=== PATIENT | female | born 1970 | race Caucasian/White ===

== ENCOUNTER 2016-08-22 20:53 | Emergency (ER) | payer BC | END 2016-08-23 00:04 | disposition home or self-care (01) | LOC: ER 20:53 | DX: M54.5 Low back pain (principal); G89.29 Other chronic pain; Z98.890 Other specified postprocedural states; F17.210 Nicotine dependence, cigarettes, uncomplicated; Z88.1 Allergy status to other antibiotic agents | CPT/HCPCS: 72100; 96372; 99283-25 ==

== ENCOUNTER 2016-10-11 23:14 | Observation (INO) | payer BC ==
[~2016-10-11] VITALS: Ht 162.6 cm; Wt 69.0 kg
[2016-10-11 23:48] LABS: BASO # 0.1 10_X3_uL (0.0-0.1); BASO % 0.8 % (0.1-1.2); EOS # 0.3 10_X3_uL (0.0-0.4); EOS % 2.6 % (0.7-5.8); GRAN # 6.7 10_X3_uL (1.6-6.1); GRAN % 66.3 % (34.0-71.1); HEMATOCRIT 42.9 % (34-45); HEMOGLOBIN 14.8 g/dL (11.2-15.7); LYMPH # 2.4 10_X3_uL (1.2-3.7); LYMPH % 23.1 % (19.3-51.7); MEAN CORPUSCULAR HEMOGLOBIN 32.5 pg (27.0-33.0); MEAN CORPUSCULAR HGB CONC 34.5 g/dL (32.0-36.0); MEAN CORPUSCULAR VOLUME 94.3 fL (79-95); MEAN PLATELET VOLUME 10.7 fl (7.5-11.5); MONO # 0.7 10_X3_uL (0.2-0.9); MONO % 7.2 % (4.7-12.5); PLATELET COUNT 283 x10_3/uL (182-369); RED BLOOD COUNT 4.55 x10_6/uL (3.9-5.2); WHITE BLOOD COUNT 10.2 x10_3/uL (4.0-10.0)
[2016-10-12 00:04] LABS: ALBUMIN 4.2 gm/dL (3.4-5.0); ALKALINE PHOSPHATASE 76 U/L (50-136); ALT/SGPT 21 U/L (3.5-33.9); AMYLASE 77 U/L (15.62-74.58); AST/SGOT 18 U/L (7.04-26.96); BLOOD UREA NITROGEN 13 mg/dL (7-18); CALCIUM 9.6 mg/dL (8.7-10.7); CARBON DIOXIDE 21 mmol/L (21-32); CREATININE 0.7 mg/dL (0.6-1.3); GLUCOSE,RANDOM 115 mg/dL (70-99); LIPASE 23 U/L (6.75-60.75); POTASSIUM 3.8 mmol/L (3.5-5.1); SODIUM 140 mmol/L (136-145); TOTAL PROTEIN 7.1 gm/dL (6.4-8.2)
[2016-10-12 06:38] LABS: HEMATOCRIT 40.4 % (34-45); HEMOGLOBIN 13.7 g/dL (11.2-15.7); MEAN CORPUSCULAR HEMOGLOBIN 32.3 pg (27.0-33.0); MEAN CORPUSCULAR HGB CONC 33.9 g/dL (32.0-36.0); MEAN CORPUSCULAR VOLUME 95.3 fL (79-95); MEAN PLATELET VOLUME 10.8 fl (7.5-11.5); RED BLOOD COUNT 4.24 x10_6/uL (3.9-5.2); RED CELL DISTRIBUTION WIDTH 13.1 % (11.7-14.4); WHITE BLOOD COUNT 9.6 x10_3/uL (4.0-10.0)
[2016-10-12 07:07] LABS: BLOOD UREA NITROGEN 10 mg/dL (7-18); CALCIUM 8.6 mg/dL (8.7-10.7); CARBON DIOXIDE 24 mmol/L (21-32); CREATININE 0.5 mg/dL (0.6-1.3); GLUCOSE,RANDOM 110 mg/dL (70-99); POTASSIUM 4.3 mmol/L (3.5-5.1); SODIUM 139 mmol/L (136-145)
== END 2016-10-13 12:05 | disposition home or self-care (01) ==
LOC: ER 23:14 → MS 10-12 01:57
PROVIDERS: General Practice; ADMIT Surgery
DX: K56.60 Unspecified intestinal obstruction (principal); K52.9 Noninfective gastroenteritis and colitis, unspecified; R10.9 Unspecified abdominal pain; Z90.49 Acquired absence of other specified parts of digestive tract; Z98.890 Other specified postprocedural states; F17.210 Nicotine dependence, cigarettes, uncomplicated; Z88.0 Allergy status to penicillin; Z88.1 Allergy status to other antibiotic agents; Z88.2 Allergy status to sulfonamides; Z79.891 Long term (current) use of opiate analgesic
CPT/HCPCS: 36415; 72128; 72131; 80048; 80053; 82150; 83690; 85025; 96361; 96374; 96375; 96376; 99070; 99285-25; G0378; J1170; J7040; Q9967